=== PATIENT | male | born 1995 | race Caucasian/White ===

== ENCOUNTER 2017-08-23 06:56 | Observation (INO) | payer OTHER ==
[2017-08-23] MEDS ORDERED: NS 1,000 ML IV ONE (06:58)
--- NOTE | 2017-08-23 07:16 | CPEKG ---
Heart Rate: 62 RR Interval: 968 P-R Interval: 132 QRSD Interval: 132 QT Interval: 460 QTC Interval: 468 P [place]: 52 QRS [place]: -19 T Wave [place]: 52 EKG Severity - ABNORMAL ECG - EKG Impression: SINUS ARRHYTHMIA, RATE 57-68 EKG Impression: VENT PREEXCITATION, LEFT ACCESSORY PATHWAY Electronically Signed By: Andrea Sharp 23-Aug-2017 10:35:53
[2017-08-23 07:31] LABS: PLATELET COUNT 177 10^3/uL (150-400)
[2017-08-23 07:38] LABS: INR 0.99 (0.83-1.16); PROTIME(PATIENT) 13.3 SEC (12.0-15.0)
[2017-08-23] MEDS ORDERED: LIDOCAINE 1% 300 MG/30 ML SDV ONE (07:53)
[2017-08-23] MEDS ORDERED: HEPARIN 10,000 UNIT/10 ML MDV (1,000 UNIT/ML) ONE ×2 (07:53→09:09)
[2017-08-23] MEDS ORDERED: ISOPROTERENOL HCL/D5W 0.2 MG/50 ML BAG IV ONE (07:54)
[2017-08-23] MEDS ORDERED: BUPIVACAINE 0.5% 30 ML SDV ONE (07:54)
--- NOTE | 2017-08-23 07:54 | PDANEPAE ---
ANE Past Medical History - Cardiovascular History Hx Hypertension: No Hx Arrhythmias: Yes Hx Chest Pain: No Hx Coronary Artery / Peripheral Vascular Disease: No Hx CHF / Valvular Disease: No Hx Palpitations: No - Pulmonary History Hx COPD: No Hx Asthma/Reactive Airway Disease: No Hx Recent Upper Respiratory Infection: Yes Hx Oxygen in Use at Home: No Hx Sleep Apnea: No ANE Review of Systems Review of Systems: ANE Patient History - Allergies Allergies/Adverse Reactions: lactose Allergy (Verified 08/23/17 07:00) Sulfa (Sulfonamide Antibiotics) Allergy (Verified 08/16/17 11:08) Rash - Home Medications Home Medications: Albuterol [Proventil Inhaler HFA (*)] 1 - 2 puffs IH Q4H PRN 08/16/17 [Last Taken 1 Day Ago ~08/22/17] Fluticasone Nasal [Flonase Nasal [place] (RX)] 1 sprays NASAL DAILY PRN 08/16/17 [ Last Taken 2 Days Ago ~08/21/17] Ibuprofen [Motrin (*)] 200 mg PO DAILY PRN 08/16/17 [Last Taken Unknown] - Smoking Hx Smoking Status: Never smoked ANE Labs/Vital Signs - Labs Result Diagrams: 08/23/17 07:15 08/23/17 07:15 - Vital Signs Height: 182.88 cm Weight: 77.111 kg ANE Physical Exam - Airway Neck exam: FROM Mallampati Score: Class 1 Mouth exam: normal dental/mouth exam - Pulmonary Pulmonary: no respiratory distress - Cardiovascular Cardiovascular: regular rate and rhythym - ASA Status ASA Status: II ANE Anesthesia Plan Anesthesia Plan: general endotracheal anesthesia
[2017-08-23] MEDS ORDERED: MIDAZOLAM 2 MG/2 ML VIAL IVP ONE (07:55)
--- NOTE | 2017-08-23 08:04 | PDGENHP ---
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 need for ts puncture d.w. him and family
[2017-08-23] MEDS ORDERED: PROPOFOL/EMULSION 500 MG/50 ML BOTTLE IV ONE ×2 (08:48→09:22)
[2017-08-23] MEDS ORDERED: fentaNYL 250 MCG/5 ML INJ ONE (08:48)
[2017-08-23] MEDS ORDERED: HEPARIN/DEXTROSE 25,000 UNIT/500 ML BAG ONE (09:09)
[2017-08-23] MEDS ORDERED: SCOPOLAMINE HYDROBROMIDE 1 MG/3 DAYS PATCH TD ONE (09:12)
[2017-08-23] MEDS ORDERED: SCOPOLAMINE HYDROBROMIDE 1 MG/3 DAYS PATCH TD SCH (09:15)
[2017-08-23] MEDS ORDERED: DEXAMETHASONE 4 MG/ML VIAL ONE (09:39)
[2017-08-23] MEDS ORDERED: ROCURONIUM 100 MG/10 ML VIAL ONE ×2 (09:39)
[2017-08-23] MEDS ORDERED: ONDANSETRON 4 MG/2 ML VIAL ONE ×2 (09:39)
[2017-08-23] MEDS ORDERED: ROCURONIUM 50 MG/5 ML VIAL ONE (10:23)
[2017-08-23] MEDS ORDERED: SUGAMMADEX SODIUM 200 MG/2 ML VIAL IVP ONE (11:03)
[2017-08-23] MEDS ORDERED: FLUTICASONE NASAL 120 SPRAYS/16 GM MDI EACHNARE PRN (11:24)
[2017-08-23] MEDS ORDERED: ALBUTEROL 60 PUFFS/8 GM MDI IH PRN (11:24)
[2017-08-23] MEDS ORDERED: fentaNYL 100 MCG/2 ML INJ IVP PRN (11:26)
[2017-08-23] MEDS ORDERED: NALOXONE HCL 0.4 MG/ML INJ IVP PRN (11:26)
[2017-08-23] MEDS ORDERED: LR 500 ML IV PRN (11:26)
[2017-08-23] MEDS ORDERED: ONDANSETRON 4 MG/2 ML VIAL IVP PRN (11:26)
--- NOTE | 2017-08-23 11:28 | POSTANESTH ---
Post Anesthetic Evaluation Cardiovascular Status: Normal, Stable Respiratory Status: Normal, Stable Level of Consciousness/Mental Status: Mildly Sleepy, Arousable Pain Control: Adequate, Prn Tx Ordered Nausea/Vomiting Control: Adequate, Prn Tx Ordered Complications Possibly Related to Anesthesia: None Noted
--- NOTE | 2017-08-23 11:37 | EPPROC ---
Electrophysiology Procedure Note: ELECTROPHYSIOLOGIC STUDY AND CATHETER MEDIATED ABLATION OF LOW MIDSEPTAL (CS OSTIUM ROOF) ACCESSORY PATHWAY Procedures performed: 71374-96 EP evaluation with RA/RV/LA pace/record, with arrhythmia induction 05022-13 EP evaluation with RA/RV pace record, insert/reposition catheter, with arrhythmia induction 79639 Intracardiac catheter ablation, SVT arrhythmogenic focus 99783 3D mapping Fluoroscopy INDICATION: Palpitations Ventricular pre-excitation PROCEDURE: Catheters and anesthesia: The patient arrived in the Electrophysiology Laboratory in the fasting state. The right clavicular region, right groin, and left groin area were prepped and draped in the usual sterile manner. Anesthesiologist Dr. Dar Middleton administered general anesthesia. Appropriate non-invasive blood pressure, pulse oximetry and end-tidal CO2 monitoring was established. All catheters were placed percutaneously using the modified Seldinger technique , and advanced into position under fluoroscopic guidance. One #6 Jamaican hexapolar non-deflectable electrode catheter was inserted into the right atrial appendage via the left femoral vein (2mm spacing; except the proximal ring which was 25cm from the tip used for unipolar recordings). One #7 Jamaican deflectable octapolar electrode catheter was advanced to the His-bundle position via the left femoral vein (2mm spacing). One #7 Jamaican deflectable quadrapolar catheter was advanced to the anteroseptal right ventricle via the left femoral vein. One #7 Jamaican deflectable catheter with 10 pairs of electrodes was placed via the right femoral vein into the coronary sinus. A Halo catheter was also placed to rule out right-sided accessory pathway. Immediately after venous access, heparin was administered to keep ACT more than 250 sec. Programmed stimulation of the right atrium, right ventricle and coronary sinus ( left atrium) was performed. Parahisian pacing demonstrated all retrograde conduction over the AV node. Supraventricular tachycardia could not be induced despite programmed stimulation. Antegrade conduction over the accessory pathway persisted to 290 milliseconds at baseline and 220 milliseconds with isoproterenol 4 micrograms/minute. Atrial fibrillation was deliberately induced , shortest RR interval during atrial fibrillation was 267 milliseconds. Because of the high-risk nature of this pathway, we decided to proceed with ablation procedure. Differential pacing from the right atrium and the coronary sinus demonstrated that atrial end of the pathway was more leftward. Earliest ventricular activation was seen in the posterior septum/mid septum. In preparation for ablation of the accessory pathway a SL1 sheath was placed and a #7 Jamaican mapping catheter with a 4 mm tip electrode and a sensor for the Hyotq3X mapping system was inserted into the SL1 sheath and advanced to the right atrium. Mapping was perfomed during atrial pacing. Mapping of the tricuspid annulus, proximal mid and distal coronary sinus was performed. Earliest ventricular activation was seen along the anteroapical edge of the coronary sinus near the ostium. There was bump block at this site. We waited for activation to resume before applying RF. RF application applied at this site terminated accessory pathway conduction within 4.2 sec of initiation of radiofrequency application. 4 more RF applications were applied anterior and posterior to this site. Programmed stimulation from the RA, CS, right ventricle during the baseline state post ablation and during infusion of isoproterenol 2 and 4 mcg/min confirmed that there was no conduction over the accessory pathway. The catheters were removed. Vascular access sheaths were removed in the EP lab after placing subcutaneous pursestring suture. The patient was transferred to the cardiovascular holding area in stable condition. There were no apparent complications. Results: A. Spontaneous Intervals: Pre ablation SCL 810 ms AH 85 ms HV 25 ms Post ablation SCL 630 ms AH 70 ms HV 40 ms B. Antegrade AV annette function (decremental pacing) Pre ablation FPERP 300 ms WBB CL 290 ms Post ablation FPERP 310 ms WBB CL 300 ms C. Retrograde AV annette function (decremental pacing) Pre ablation FPERP 490 ms WBB CL 480 ms D. Accessory pathway function 1. A single AV accessory pathway was identified at the anteroapical edge of the coronary sinus near the ostium. 2. The AV accessory pathway conducted in the antegrade directions. During atrial pacing 1:1 conduction over the accessory pathway was maintained to a cycle length of 300 ms, block over the AP occurred at 290 ms. During isoproterenol infusion at 4 micrograms/minute, antegrade conduction over the accessory pathway persisted to 220 milliseconds. During intentionally induced atrial fibrillation, shortest RR interval demonstrating conduction over the accessory pathway was 267 milliseconds. E. Arrhythmias: Atrial fibrillation, induced intentionally. AVRT could not be induced CONCLUSIONS: 1. 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 Conducted in the antegrade direction only. 2. AVRT could not be induced. 3. Ablation performed since pathway was thought to confer high risk of sudden . 4. Successful ablation of the accessory pathway . 5. No apparent complications. Patient Problems: Problems Problem Status Onset WPW syndrome Acute
--- NOTE | 2017-08-23 13:41 | CPEKG ---
Heart Rate: 52 RR Interval: 1154 P-R Interval: 148 QRSD Interval: 100 QT Interval: 480 QTC Interval: 447 P [place]: 52 QRS [place]: 62 T Wave [place]: 21 EKG Severity - ABNORMAL ECG - EKG Impression: SINUS RHYTHM EKG Impression: PROBABLE LEFT VENTRICULAR HYPERTROPHY EKG Impression: LATERAL Q WAVES, PROBABLY NORMAL VARIATION EKG Impression: ST ELEV, PROBABLE NORMAL EARLY REPOL PATTERN EKG Impression: TALL T WAVES, PROBABLY NORMAL VARIANT Electronically Signed By: Andrea Sharp 23-Aug-2017 14:59:47
--- NOTE | 2017-08-23 16:04 | ASMTCMCOM ---
CM Note CM Note Notes: Patient with WPW Syndrome admitted for catheter mediated ablation of a low midseptal accessory pathway. This was performed without complications today. He is an otherwise healthy [employer] student. I don't anticipate any discharge needs, but Case Management available if any arise. Date Signed: 08/23/2017 04:03 PM Electronically Signed By:Ivonne Tamez RN
[2017-08-24 04:19] LABS: PLATELET COUNT 178 10^3/uL (150-400)
[2017-08-24 04:35] LABS: CREATINE KINASE 109 IU/L (0-224)
[2017-08-24 08:15] VITALS: BP 105/51
[2017-08-24] MEDS ORDERED: ASPIRIN 81 MG CHEWABLE TAB PO SCH (09:00)
--- NOTE | 2017-08-24 09:40 | CPEKG ---
Heart Rate: 63 RR Interval: 952 P-R Interval: 148 QRSD Interval: 104 QT Interval: 436 QTC Interval: 447 P [place]: 42 QRS [place]: 44 T Wave [place]ie: 0 EKG Severity - ABNORMAL ECG - EKG Impression: SINUS RHYTHM EKG Impression: NONSPECIFIC T ABNORMALITIES, INFERIOR LEADS Electronically Signed By: Jose Medrano 24-Aug-2017 12:57:59
--- NOTE | 2017-08-24 11:52 | ECHO ---
[email or web address] [address] [address] Main: [phone] Fax: Transthoracic Echocardiogram Name: CONCEPCIÓN BROWN MR#: [id number] Study Date: 08/24/2017 Study Time: 09:05 AM Date of : 1995 Age: 22 year(s) Height: 182.9 cm (72 in.) Weight: 77.11 kg (170 lb.) BSA: 1.99 m2 Gender: Male Examination: Echo Indication: F/U post EP study Image Quality: Contrast: Requested by: Jose Medrano BP: 105 mmHg/51 mmHg Heart Rate: Rhythm: Indication: F/U post EP study Procedure Staff Rug Dry Room Attendant: Grisel Stoll RDCS Reading Physician: Adonis Berumen MD Requesting Provider: Conclusions: Normal study Measurements: Chambers Valvular Assessment AV/MV Valvular Assessment TV/PV Normal Normal Normal Name Value Range Name Value Range Name Value Range Ao Jessica (2D): 3.7 cm (1.4 cm-2.6 AV meanP mmHg ( - ) cm) MV E Vmax: 0.64 m/s ( - ) IVSd (2D): 1.1 cm (0.6 cm-1.1 MV A Vmax: 0.33 m/s ( - ) cm) MV E/A: 1.94 ( - ) LVDd (2D): 5.4 cm (4.2 cm-5.9 cm) LVDs (2D): 3.0 cm (2.1 cm-4 cm) LVPWd (2D): 0.8 cm (0.6 cm-1 cm) LVEF (MOD4): 74 % (>=55 %) EF Range: 65-70 % Continued Measurements: Chambers Valvular Assessment AV/MV Name Value Name Value LADs: 3.9 cm MV E' Septal: 0.11 m/s LADs Lon.3 cm MV E/E' Septal: 5.60 LA Area: 21.1 cm2 MV E/E' Lateral: 4.50 Findings: Left Ventricle: Patient: CONCEPCIÓN BROWN Study Date: 08/24/2017 Page 1 of 2 09:05 AM Normal size left ventricle. No LV hypertrophy. Normal global systolic LV function. The ejection fraction is estimated to be 65-70 %. No regional wall motion abnormality. Right Ventricle: Normal size right ventricle. Left Atrium: The left atrium is normal in size. Right Atrium: The right atrium is normal in size. Definite Eustachian valve in right atrium. Mitral Valve: The mitral valve is normal in appearance and function. Trivial mitral valve regurgitation. Aortic Valve: The aortic valve is normal in appearance and function. Tricuspid Valve: The tricuspid valve is normal in appearance and function. Trivial tricuspid valve regurgitation. Pulmonic Valve: The pulmonic valve is normal in appearance and function. Trivial pulmonic valve regurgitation. Aorta: The aorta is normal. Pericardium: No pericardial effusion. (No Signature Object) Patient: CONCEPCIÓN BROWN Study Date: 08/24/2017 Page 2 of 2 09:05 AM [id number]
--- NOTE | 2017-08-24 17:15 | GDS ---
[f rep st] DISCHARGE SUMMARY DISCHARGE DIAGNOSIS: [id number], status post ablation of low mid septal accessory pathway . PROCEDURES: 1. 08/23/2017, ablation procedure of a single low right mid septal accessory pathway located on the anteroapical edge of the ostial coronary sinus. 2. 08/24/2017, echocardiogram, which shows normal study. HISTORY OF PRESENT ILLNESS: Please see dictated H and P by Dr. Medrano for complete details. In brief. 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 He presented to clinic recently with sy mptoms of chest pain. He proceeded to the ablation procedure as detailed above. On day of discharge , patient denies any groin pain or chest pain. He notes a sinus infection with productive sputum. PHYSICAL EXAMINATION: VITAL SIGNS: On day of discharge, blood pressure 105/51, heart rate 40 to 45, respirations 13, O2 saturation 94% on room air, temp of 98.5 degrees Fahrenheit. GENERAL: He is a pleasant male in no apparent distress. HEART: Regular rate and rhythm. LUNGS: Clear. EXTREMITIES : Bilateral groin sites without ecchymosis or bruit auscultated. He has 2+ PT and DP pulses bilater ally. LABORATORY/IMAGING: CBC with WBC 12.25, hemoglobin 15.1, hematocrit 44, platelet count of 178. BMP with sodium 144, potassium 3.9, chloride 107, CO2 25, BUN 13, creatinine 0.9, glucose 107. Troponin 0.15 consistent with recent ablation. A 12-lead ECG personally interpreted demonstrates sinus rhythm with elimination of delta waves. Ther e is diffuse ST, T-wave abnormalities with T-wave inversions inferiorly. RESULTS PENDING: None. DIET: Per previous. ACTIVITY: We reviewed groin precautions. DISCHARGE MEDICATIONS: Please see med reconciliation. He can continue his p.r.n. Motrin. He has re quested a prescription for Augmentin, which was sent to him for 5 days. He will need to be on aspiri n for 6 weeks time. DISCHARGE INSTRUCTIONS: 1. Groin precautions. 2. Follow up with [facility] if sinusitis symptoms do not resolve. 3. Follow up with Dr. Medrano as scheduled. /[id number]/MODL
[2017-08-26] MEDS ORDERED: PATCH REMOVAL 1 EA PATCH TD SCH (09:07)
== END 2017-08-24 12:30 | disposition home or self-care (01) ==
LOC: FCATH 06:56 → F2W 11:23
PROVIDERS: ADMIT Internal Medicine Cardiovascular Disease; ATTEND Internal Medicine Cardiovascular Disease
PROC: 02563ZZ Destruction of Right Atrium, Percutaneous Approach (ICD-10-PCS; principal; 2017-08-23)
DX: I45.6 Pre-excitation syndrome (principal); R00.2 Palpitations
CPT/HCPCS: 93005; 93306; 93613; 93623; 93653; C1730; C1732; C1893; G0378; C1731; J1100; J1644; J2250; J2405; J2704; J3010